=== PATIENT | male | born 1995 | race Native Hawaiian/Other Pacific Islander ===

== ENCOUNTER 2017-12-08 19:53 | Emergency (ER) | payer OTHER ==
[~2017-12-08] VITALS: Ht 182.9 cm; Wt 99.8 kg
[2017-12-08] MEDS ORDERED: TRAZ50TA36 PO (20:12)
[2017-12-08] MEDS ORDERED: MINIPRESS2 MG OR (20:13)
== END 2017-12-08 21:06 ==
LOC: ED 19:53
DX: S00.93XA Contusion of unspecified part of head, initial encounter (principal); S61.431A Puncture wound without foreign body of right hand, initial encounter; R51 Headache; Y04.0XXA Assault by unarmed brawl or fight, initial encounter; Y92.149 Unspecified place in prison as the place of occurrence of the external cause
CPT/HCPCS: 90715; 96372; 99283